=== PATIENT | female | born 1985 ===

== ENCOUNTER 2018-10-04 17:53 | Outpatient (CLI) | payer OTHER ==
[~2018-10-04] VITALS: Ht 177.8 cm; Wt 86.2 kg
== END 2018-10-04 18:00 | disposition home or self-care (01) ==
LOC: OFIC 805 17:53
DX: J30.89 Other allergic rhinitis (principal); H61.23 Impacted cerumen, bilateral; H90.3 Sensorineural hearing loss, bilateral